=== PATIENT | female | born 1990 | race Two or more races ===

== ENCOUNTER 2016-09-13 00:46 | Emergency (ER) | payer SELFPAY ==
[~2016-09-13] VITALS: Ht 160 cm; Wt 99.8 kg
[~2016-09-13 00:46] MED LIST: AMOX875T PO; AZIT250T6 PO; PRED20TA PO; PROAIR HFA8.5 GM IH; advair inhaler
[2016-09-13 00:57] VITALS: BP 138/97
[2016-09-13] MEDS ORDERED: IPRATRPIUM/ALBUTEROL 0.5/2.5MG 3 ML NEBU. NEB ONE ×2 (01:30→02:00)
[2016-09-13] MEDS ORDERED: PROAIR HFA8.5 GM INH (01:30)
[2016-09-13] MEDS ORDERED: IBUP200T77 PO (01:30)
--- NOTE | 2016-09-13 01:30 | PHYS DOC ---
Past Medical History Past Medical History: Asthma Past Surgical History: Alcohol Use: Occasionally Drug Use: None Adult General Chief Complaint Chief Complaint: ASTHMA HPI HPI 25-year-old female presenting to the emergency department today with cough and shortness of breath over the past 2 days. She reports her triggers usually being viral infections and seasonal changes. Location lungs. Duration intermittent. No alleviating or exacerbating factors. She has been using her inhaler at home with minimal relief. Review of systems is negative for abdominal pain nausea vomiting. She denies chest pain. She does have back pain from coughing from her upper respiratory tract infection. All other review of systems is negative unless otherwise noted in history of present illness. Pertinent physical exam findings: The patient is wheezing bilaterally with prolonged expert phase. She is nontoxic in appearance and without any distress. ED course: 25-year-old female presenting to the emergency department today with worsening shortness of breath. Likely secondary to asthma. DuoNeb given. On reexamination her breathing improved significantly. Wheezing improved. She was in discharged home to follow up with PCP. The patient was then discharged home in stable condition to follow up with their primary care physician over the next 2-3 days. They were to return if their symptoms worsened or if they were concerned for any reason. [id number] discharge instructions and return precautions were given. Patient's questions were answered to their satisfaction. Patient is comfortable plan. Review of Systems Review of Systems SEE ABOVE. Current Medications Current Medications Current Medications Medications (Trade) Dose Ordered Sig/Mason Start Time Stop Time Status Last Admin Dose Admin Albuterol/ Ipratropium (Duoneb) 3 ml 1X ONCE 09/13/16 01:30 09/13/16 01:31 09/13/16 01:10 3 ML Allergies Allergies Allergies Coded Allergies Type Severity Reaction Last Updated Verified No Known Drug Allergies 11/15/13 No Physical Exam Physical Exam Constitutional: Well developed, well nourished, no acute distress, non-toxic appearance. [] HENT: Normocephalic, atraumatic, bilateral external ears normal, oropharynx moist, no oral exudates, nose normal. [] Eyes: PERRLA, EOMI, conjunctiva normal, no discharge. [] Neck: Normal range of motion, no tenderness, supple, no stridor. [] Cardiovascular:Heart rate regular rhythm, no murmur [] Lungs & Thorax: see above Abdomen: Bowel sounds normal, soft, no tenderness, no masses, no pulsatile masses. [] Skin: Warm, dry, no erythema, no rash. [] Back: No tenderness, no CVA tenderness. [] Extremities: No tenderness, no cyanosis, no clubbing, ROM intact, no edema. [] Neurologic: Alert and oriented X 3, normal motor function, normal sensory function, no focal deficits noted. [] Psychologic: Affect normal, judgement normal, mood normal. [] Current Patient Data Vital Signs Vital Signs Date Time Temp Pulse Resp B/P (MAP) Pulse Ox O2 Delivery O2 Flow Rate FiO2 09/13/16 01:10 95 Room Air 09/13/16 00:57 98.2 92 24 138/97 (111) 98.2 EKG EKG [] Radiology/Procedures Radiology/Procedures [] Course & Med Decision Making Course & Med Decision Making Pertinent Labs and Imaging studies reviewed. (See chart for details) [] Dragon Disclaimer Dragon Disclaimer This electronic medical record was generated, in whole or in part, using a voice recognition dictation system. Departure Departure Impression: Primary Impression: Asthma exacerbation Disposition: HOME, SELF-CARE Condition: STABLE Referrals: NO PCP (PCP) MATY LAGUERRE MD Patient Instructions: Asthma, Adult Additional Instructions: Thank you for allowing us to participate in your care today. Use your inhaler as needed for shortness of breath and follow up with their doctor. Followup with your primary care physician in 3 days if your symptoms do not improve. If you do not have a primary care provider you can ask for a list of our primary care providers. Return to the emergency department you have any new or concerning findings. This should be evaluated by the primary care physician and any necessary consulting services for continued management within a few days after discharge. Return to emergency room if you have any new or concerning symptoms including but not limited to fever, chills, nausea, vomiting, intractable pain, any new rashes, chest pain, shortness of air, uncontrolled bleeding, difficulty breathing, and/or vision loss. Scripts Albuterol Sulfate (PROAIR HFA INHALER) 8.5 Gm Hfa.aer.ad 1 PUFF INH PRN Q6HRS Y for SHORTNESS OF BREATH for 5 Days, INHALER 0 Refills Prov: JOSLYN TAPIA MD 09/13/16 Ibuprofen (IBUPROFEN) 200 Mg Tablet 200 MG PO PRN Q6HRS Y for INFLAMMATION, #30 TAB Prov: JOSLYN TAPIA MD 09/13/16 JOSLYN TAPIA MD Sep 13, 2016 01:30
[2016-09-13] MEDS ORDERED: PRED50TA PO (01:37)
== END 2016-09-13 01:50 | disposition home or self-care (01) ==
LOC: ER 00:46
DX: J45.901 Unspecified asthma with (acute) exacerbation (principal); Z98.890 Other specified postprocedural states
CPT/HCPCS: 94250; 94640; 99284; J7620

== ENCOUNTER 2017-08-18 13:08 | Emergency (ER) | payer SELFPAY ==
[2017-08-18] MEDS: BENZONATATE 100 MG CAPSULE. PO (13:57)
[2017-08-18] MEDS: predniSONE 20 MG TABLET PO (13:57)
[2017-08-18] MEDS: IPRATRPIUM/ALBUTEROL 0.5/2.5MG 3 ML NEBU. NEB (14:04)
== END 2017-08-18 14:30 | disposition home or self-care (01) ==
LOC: ER 14:30
DX: J45.21 Mild intermittent asthma with (acute) exacerbation (principal)
CPT/HCPCS: 94640; 99283; J7512; J7620

== ENCOUNTER 2019-10-31 23:54 | Emergency (ER) | payer SELFPAY ==
[~2019-10-31] VITALS: Ht 160 cm; Wt 118.1 kg
[~2019-10-31 23:54] MED LIST changes: +ALBU2.5V8 IH; +ALBU2.5V8 INH; +BENZ100C PO; +IBUP200T77 PO; +PRED50TA PO; -PROAIR HFA8.5 GM IH; +VENTOLIN HFA18 GM INH
--- NOTE | 2019-11-01 00:11 | PHYS DOC ---
Past Medical History Past Medical History: Asthma Past Surgical History: Smoking Status: Never Smoker Alcohol Use: Occasionally Drug Use: None General Adult EDM: Chief Complaint: ASTHMA HPI: HPI: Patient is a 28 year old female with hx of asthma who presents with acute asthma exacerbation. Patient states she has been having wheezing for the last week. She went to and get a breathing treatment there was discharged with steroids but she did not get them filled until today. So she took her first dose today. She denies any productive cough or fever. She denies any coronavirus exposures. She states is typical of her asthma exacerbations. She states she tried a home nebulizer but is concerned that the medication may be outdated. No chest pain Review of Systems: Review of Systems: Constitutional: Denies fever or chills. [] Eyes: Denies change in visual acuity. [] HENT: Denies nasal congestion or sore throat. [] Respiratory: Denies cough or shortness of breath. [] Cardiovascular: Denies chest pain or edema. [] GI: Denies abdominal pain, nausea, vomiting, bloody stools or diarrhea. [] : Denies dysuria. [] Musculoskeletal: Denies back pain or joint pain. [] Integument: Denies rash. [] Neurologic: Denies headache, focal weakness or sensory changes. [] Endocrine: Denies polyuria or polydipsia. [] Lymphatic: Denies swollen glands. [] Psychiatric: Denies depression or anxiety. [] Heart Score: Risk Factors: Risk Factors: DM, Current or recent (<one month) smoker, HTN, HLP, family history of CAD, obesity. Risk Scores: Score 0 - 3: 2.5% MACE over next 6 weeks - Discharge Home Score 4 - 6: 20.3% MACE over next 6 weeks - Admit for Clinical Observation Score 7 - 10: 72.7% MACE over next 6 weeks - Early Invasive Strategies Current Medications: Current Medications Medications (Trade) Dose Ordered Sig/Mason Start Time Stop Time Status Last Admin Dose Admin Albuterol/ Ipratropium (Duoneb) 3 ml 1X ONCE 11/01/19 00:15 11/01/19 00:16 Allergies: Allergies: Allergies Coded Allergies Type Severity Reaction Last Updated Verified No Known Drug Allergies 11/15/13 No Physical Exam: PE: Constitutional: Well developed, well nourished, no acute distress, non-toxic appearance. [] HENT: Normocephalic, atraumatic, bilateral external ears normal, oropharynx moist, no oral exudates, nose normal. [] Eyes: PERRLA, EOMI, conjunctiva normal, no discharge. [] Neck: Normal range of motion, no tenderness, supple, no stridor. [] Cardiovascular: Sinus tachycardia Lungs & Thorax: Patient has bilateral inspiratory and expiratory wheezing with Abdomen: Bowel sounds normal, soft, no tenderness, no masses, no pulsatile masses. [] Skin: Warm, dry, no erythema, no rash. [] Back: No tenderness, no CVA tenderness. [] Extremities: No tenderness, no cyanosis, no clubbing, ROM intact, no edema. [] Neurologic: Alert and oriented X 3, normal motor function, normal sensory function, no focal deficits noted. [] Psychologic: Affect normal, judgement normal, mood normal. [] EKG: EKG: [] Radiology/Procedures: Radiology/Procedures: [] Course & Med Decision Making: Course & Med Decision Making Pertinent Labs and Imaging studies reviewed. (See chart for details) Patient has signs and symptoms of asthma exacerbation. Patient was given DuoNeb and her wheezing completely cleared. She will be given albuterol inhaler as well as albuterol for her nebulizer machine at home. I counseled her on continuing the steroids at home. Flora Disclaimer: Flora Disclaimer: This electronic medical record was generated, in whole or in part, using a voice recognition dictation system. Departure Departure Impression: Primary Impression: Asthma exacerbation Disposition: HOME, SELF-CARE Condition: IMPROVED Referrals: UNKNOWN PCP NAME (PCP) Patient Instructions: Asthma, Adult Scripts Ipratropium/Albuterol Sulfate (DUONEB 0.5-3(2.5) MG/3 ML) 3 Ml Ampul.neb 3 ML NEB QID for 30 Days, #120 EACH Prov: HEBERT THOMPSON DO 11/01/19 Albuterol Sulfate (PROAIR HFA INHALER) 8.5 Gm Hfa.aer.ad 2 PUFF INH Q4-6HRS PRN for SHORTNESS OF BREATH for 2 Days, #1 INHALER 0 Refills Prov: HEBERT THOMPSON DO 11/01/19 Justicifation of Admission Dx: Justifications for Admission: Justification of Admission Dx: N/A HEBERT THOMPSON DO Nov 01, 2019 00:11
[2019-11-01] MEDS ORDERED: IPRATRPIUM/ALBUTEROL 0.5/2.5MG 3 ML NEBU. NEB ONE (00:15)
--- NOTE | 2019-11-01 00:23 | RAD ---
Chest AP portable at 12:02 AM: Reason for examination: Asthma. Comparison is made to previous study dated 08/23/2014. The heart size is normal. Mediastinum is unremarkable. Lung bliss are clear. No acute bony abnormalities are seen. Impression: No acute cardiopulmonary disease. Electronically signed by: Candice Ledesma MD (11/01/2019 12:21 AM) [id number]
[2019-11-01] MEDS ORDERED: ALBU2.5V8 INH (01:00)
[2019-11-01] MEDS ORDERED: IPRA3AMP29 NEB (01:00)
[2019-11-01 01:01] VITALS: BP 151/84
== END 2019-11-01 01:10 | disposition home or self-care (01) ==
LOC: ER 23:54
DX: J45.901 Unspecified asthma with (acute) exacerbation (principal); Z98.890 Other specified postprocedural states
CPT/HCPCS: 71045; 94640; 99283

== ENCOUNTER 2020-01-23 20:40 | Emergency (ER) | payer SELFPAY ==
[~2020-01-23] VITALS: Ht 160 cm; Wt 120.0 kg
[~2020-01-23 20:40] MED LIST changes: +IPRA3AMP29 NEB
[2020-01-23] MEDS ORDERED: PRED20TA PO (20:58)
--- NOTE | 2020-01-23 20:59 | PHYS DOC ---
Past Medical History Past Medical History: Asthma Past Surgical History: Smoking Status: Never Smoker Alcohol Use: Occasionally Drug Use: None General Adult EDM: Chief Complaint: ASTHMA HPI: HPI: Patient is a 29 year old female with a past medical history asthma presents with a chief complaint of asthma exam as observation. Patient states exacerbation started today. Approximately 2 hours ago breathing became worse. Patient is used her inhaler with minimal improvement. Patient states she has a cough with some sputum production. Patient states current symptoms are all consistent with previous exacerbations. She denies any fevers or chills or Covid exposures. Patient states she is normally treated with steroids. Review of Systems: Review of Systems: Constitutional: Denies fever or chills. [] Eyes: Denies change in visual acuity. [] HENT: Denies nasal congestion or sore throat. [] Respiratory: Positive cough positive shortness of breath positive wheezing Cardiovascular: Denies chest pain or edema. [] GI: Denies abdominal pain, nausea, vomiting, bloody stools or diarrhea. [] : Denies dysuria. [] Musculoskeletal: Denies back pain or joint pain. [] Integument: Denies rash. [] Neurologic: Denies headache, focal weakness or sensory changes. [] Endocrine: Denies polyuria or polydipsia. [] Lymphatic: Denies swollen glands. [] Psychiatric: Denies depression or anxiety. [] Heart Score: Risk Factors: Risk Factors: DM, Current or recent (<one month) smoker, HTN, HLP, family history of CAD, obesity. Risk Scores: Score 0 - 3: 2.5% MACE over next 6 weeks - Discharge Home Score 4 - 6: 20.3% MACE over next 6 weeks - Admit for Clinical Observation Score 7 - 10: 72.7% MACE over next 6 weeks - Early Invasive Strategies Allergies: Allergies: Allergies Coded Allergies Type Severity Reaction Last Updated Verified No Known Drug Allergies 11/15/13 No Physical Exam: PE: Constitutional: Well developed, well nourished, no acute distress, non-toxic appearance. [] HENT: Normocephalic, atraumatic, bilateral external ears normal, oropharynx moist, no oral exudates, nose normal. [] Eyes: PERRLA, EOMI, conjunctiva normal, no discharge. [] Neck: Normal range of motion, no tenderness, supple, no stridor. [] Cardiovascular:Heart rate regular rhythm, no murmur [] Lungs & Thorax: No respiratory distress expiratory wheeze Abdomen: Bowel sounds normal, soft, no tenderness, no masses, no pulsatile masses. [] Skin: Warm, dry, no erythema, no rash. [] Back: No tenderness, no CVA tenderness. [] Extremities: No tenderness, no cyanosis, no clubbing, ROM intact, no edema. [] Neurologic: Alert and oriented X 3, normal motor function, normal sensory function, no focal deficits noted. [] Psychologic: Affect normal, judgement normal, mood normal. [] EKG: EKG: [] Radiology/Procedures: Radiology/Procedures: [] Course & Med Decision Making: Course & Med Decision Making Pertinent Labs and Imaging studies reviewed. (See chart for details) []Treated with albuterol and duoneb and solumedrol. DC home on prednisone Dragon Disclaimer: [email or web address] Disclaimer: This electronic medical record was generated, in whole or in part, using a voice recognition dictation system. Departure Departure Impression: Primary Impression: Asthma exacerbation Disposition: DC HOME SELF CARE/HOMELESS Condition: STABLE Referrals: UNKNOWN PCP NAME (PCP) Patient Instructions: Asthma, Adult Scripts Prednisone (PREDNISONE) 20 Mg Tablet 1 TAB PO UD for 12 Days, #15 TAB Take 2 tabs days 1,2,3 1.5 tabs days 3,4,5 1 tab days 6,7,8 0.5 tab days 9,10,11 Prov: ROMEO JARRETT DO 01/23/20 ROMEO JARRETT DO Jan 23, 2020 20:59
[2020-01-23] MEDS ORDERED: methylPREDNISolone SOD SUCC PF 125 MG/2 ML VIAL. IM ONE (21:00)
[2020-01-23] MEDS ORDERED: ALBUTEROL SULFATE 2.5 MG/3 ML NEBU. NEB ONE (21:00)
[2020-01-23] MEDS ORDERED: IPRATRPIUM/ALBUTEROL 0.5/2.5MG 3 ML NEBU. NEB ONE (21:30)
[2020-01-23 21:45] VITALS: BP 144/82
== END 2020-01-23 22:01 | disposition home or self-care (01) ==
LOC: ER 20:40
DX: J45.901 Unspecified asthma with (acute) exacerbation (principal); R06.02 Shortness of breath; R05 Cough; Z98.890 Other specified postprocedural states
CPT/HCPCS: 94640; 96372; 99284; J2930; J7613

== ENCOUNTER 2021-01-15 01:23 | Emergency (ER) | payer SELFPAY ==
[~2021-01-15] VITALS: Ht 160 cm; Wt 119.0 kg
--- NOTE | 2021-01-15 01:40 | PHYS DOC ---
Past Medical History Past Medical History: Asthma Past Surgical History: Smoking Status: Never Smoker Alcohol Use: Occasionally Drug Use: None General Adult EDM: Chief Complaint: SHORTNESS OF BREATH HPI: HPI: Patient is a 30 year old female who presents with 2 to 3 days of nonproductive cough, wheezing and dyspnea. She reports that she feels like her lungs are "tight." She has a history of asthma. She has been using her inhalers without much relief. She is almost out of her albuterol now. She has not seen her primary care physician in some time. She denies any known sick contacts. She denies travel history, surgeries or recent hospitalization. She denies hemoptysis. She denies purulent sputum production. She denies fevers or chills. Denies leg pain or swelling. Denies nausea vomiting, abdominal pain. Review of Systems: Review of Systems: Constitutional: Denies fever or chills. [] Eyes: Denies change in visual acuity. [] HENT: She reports nasal congestion. Denies sore throat. Respiratory: As to dry cough, shortness of breath and wheezing. Cardiovascular: Denies chest pain or edema. [] GI: Denies abdominal pain, nausea, vomiting Musculoskeletal: Denies back pain or joint pain. Denies leg or calf pain. Integument: Denies rash. [] Neurologic: Denies headache, focal weakness or sensory changes. [] Endocrine: Denies polyuria or polydipsia. [] Lymphatic: Denies swollen glands. [] Psychiatric: Denies depression or anxiety. [] Heart Score: C/O Chest Pain: No Risk Factors: Risk Factors: DM, Current or recent (<one month) smoker, HTN, HLP, family history of CAD, obesity. Risk Scores: Score 0 - 3: 2.5% MACE over next 6 weeks - Discharge Home Score 4 - 6: 20.3% MACE over next 6 weeks - Admit for Clinical Observation Score 7 - 10: 72.7% MACE over next 6 weeks - Early Invasive Strategies Allergies: Allergies: Allergies Coded Allergies Type Severity Reaction Last Updated Verified No Known Drug Allergies 11/15/13 No Physical Exam: PE: Constitutional: Well developed, well nourished, no acute distress, non-toxic appearance. [] HENT: Normocephalic, atraumatic, bilateral external ears normal, oropharynx moist, no oral exudates, nose normal. [] Eyes: PERRLA, EOMI, conjunctiva normal, no discharge. [] Neck: Normal range of motion, no tenderness, supple, no stridor. [] Cardiovascular:Heart rate regular rhythm, no murmur, +2 radial and posterior tibial pulses bilaterally. No peripheral edema. Lungs & Thorax: Equal chest rise, speaks in full sentences. On auscultation of lungs, she has diffuse inspiratory and expiratory wheezes. No rales or rhonchi. No stridor. No retractions. No tachypnea. No distress. Abdomen: Obese, soft, nondistended and nontender to palpation. Skin: Warm, dry, no erythema, no rash. [] Back: Full range of motion Extremities: No tenderness, no cyanosis, no clubbing, ROM intact, no edema. No calf tenderness. Neurologic: Alert and oriented X 3, normal motor function, normal sensory function, no focal deficits noted. [] Psychologic: Affect normal, judgement normal, mood normal. [] EKG: EKG: [] Radiology/Procedures: Radiology/Procedures: [] Course & Med Decision Making: Course & Med Decision Making DuoNeb breathing treatment is given. P.o. prednisone given. The patient has resting comfortably. She reports feeling significantly better. She denies dyspnea. She no longer experiences any chest or thorax tightness. Oxygen saturation is normal. Repeat lung exam reveals all bliss are clear to auscultation bilaterally. No further wheezing. No evidence of distress. I discussed the findings, differential diagnosis and plan of care with the patient. I recommend she follow-up with her primary care physician. Strict return precautions are given. She is comfortable to plan for discharge home. Flora Disclaimer: Flora Disclaimer: This electronic medical record was generated, in whole or in part, using a voice recognition dictation system. Departure Departure Impression: Primary Impression: Asthma exacerbation Disposition: 01 HOME / SELF CARE / HOMELESS Condition: GOOD Referrals: UNKNOWN PCP NAME (PCP) Patient Instructions: Asthma Attacks, Prevention, Asthma, Adult Additional Instructions: Use the medication as directed. Please take the full course of prednisone as directed, take this medication with food. Return immediately for refractory wheezing, or severe shortness of breath, severe chest pain, coughing up blood, fever of 100.4 or higher, vomiting, dehydration, weakness or any other concerns. Please follow-up with your primary care physician. Scripts Prednisone (PREDNISONE) 50 Mg Tablet 1 TAB PO DAILY for 4 Days, #4 TAB Prov: PETRA ESQUIVEL DO 01/15/21 Albuterol Sulfate (PROAIR HFA INHALER) 8.5 Gm Hfa.aer.ad 2 PUFF IH PRN Q4-6HRS PRN for wheezing for 21 Days, #1 INHALER 2 Refills Prov: PETRA ESQUIVEL DO 01/15/21 PETRA ESQUIVEL DO Jan 15, 2021 01:40
[2021-01-15] MEDS: predniSONE 10 MG TABLET PO ONE (02:19)
[2021-01-15] MEDS: IPRATRPIUM/ALBUTEROL 0.5/2.5MG 3 ML NEBU. NEB ONE (02:23)
[2021-01-15] MEDS ORDERED: PRED50TA PO (03:09)
[2021-01-15] MEDS ORDERED: ALBU2.5V8 IH (03:09)
[2021-01-15 03:20] VITALS: BP 139/86
== END 2021-01-15 03:25 | disposition home or self-care (01) ==
LOC: ER 01:23
DX: J45.901 Unspecified asthma with (acute) exacerbation (principal)
CPT/HCPCS: 94640; 99283; J7512